=== PATIENT | female | born 1995 | race Asian ===

== ENCOUNTER 2019-03-23 00:14 | Emergency (ER) | payer MEDICAID ==
[~2019-03-23] VITALS: Ht 162.6 cm; Wt 72.1 kg
[2019-03-23 00:25] VITALS: BP 112/65
[2019-03-23 02:18] VITALS: BP 112/65
== END 2019-03-23 02:18 | disposition home or self-care (01) ==
LOC: MED 00:14
DX: B34.9 Viral infection, unspecified (principal); E11.9 Type 2 diabetes mellitus without complications
CPT/HCPCS: 81002; 81025; 87804; 99283